=== PATIENT | male | born 1960 | race Caucasian/White ===

== ENCOUNTER → 2019-12-17 | Outpatient (CLI) | payer OTHER ==
--- NOTE | ~2019-12-17 | EEG ---
[address] [address] EEG STUDY REPORT Name: LIU MITCHELL Room: [facility]#: [id number] Admission: 12/17/19 Attend Phys: Physician not on staf Discharge: Date of : 56 Report #: [id number] THIS REPORT FOR: //name// CC: Physician staff TRINIDAD Capps DATE OF SERVICE: 12/17/2019 STUDY: This patient is being evaluated for confusion. EEG was done by placing the electrode by standard 10-20 system of electrode placement. Both referential and sequential montages were used for recording. The patient's background activity is about 10 Hz and 40 microvolt. It is reasonably well-formed background activity. The patient became drowsy and that is associated with bilateral slowing and vertex sharp waves. Photic stimulation is unremarkable. Throughout the record, no active epileptiform activity was noticed. IMPRESSION: This patient's EEG is unremarkable. No active epileptiform activity was noticed during this record. By: [id number] Romero MD /nt
== END ==
LOC: M.CRD 11:44 → M.ULTRA 13:00 → M.CRD 14:00
DX: R40.4 Transient alteration of awareness (principal)

== ENCOUNTER → 2019-12-17 | Outpatient (CLI) | payer OTHER | LOC: M.CT 12-06 10:42 → M.MRI 11:30 → M.CT 13:30 | DX: M48.02 Spinal stenosis, cervical region (principal); M50.223 Other cervical disc displacement at C6-C7 level; M50.221 Other cervical disc displacement at C4-C5 level; M79.89 Other specified soft tissue disorders; R40.4 Transient alteration of awareness; G31.89 Other specified degenerative diseases of nervous system; R53.1 Weakness; Z86.718 Personal history of other venous thrombosis and embolism ==

== ENCOUNTER → 2020-01-25 | Outpatient (CLI) | payer OTHER | LOC: M.MRI 11:30 | DX: R29.2 Abnormal reflex (principal) ==